=== PATIENT | male | born 1945 | race Caucasian/White ===

== ENCOUNTER → 2019-02-11 09:31 | Outpatient (CLI) | payer MEDICARE, OTHER, SELFPAY ==
[2019-02-11 10:38] LABS: Add Manual Diff / Slide Review NO; Basophils Absolute Auto 100 /uL (0-100); Eosinophils Absolute Auto 300 /uL (0-450); Eosinophils Percent Auto 3.6 % (2-4); Hematocrit 39.9 % (41-53); Hemoglobin 12.8 g/dL (13.5-17.5); Lymphocytes Absolute Auto 1200 /uL (1100-4500); Lymphocytes Percent Auto 13.9 % (25-40); Mean Corpuscular HGB Conc 32.1 % (30-36); Mean Corpuscular Hemoglobin 25.5 PG (26-34); Mean Corpuscular Volume 79.2 fL (80-100); Monocytes Absolute Auto 1300 /uL (0-900); Monocytes Percent Auto 14.5 % (3-14); Neutrophils Absolute Auto 6000 /uL (1500-7000); Platelet Count 301 X10^3/uL (150-400); Red Blood Cell Count 5.04 X10^6/uL (4.5-5.9); Red Cell Distribution Width 18.6 % (11.6-14.8); White Blood Cell Count 8.9 X10^3/uL (4.5-11.0)
[2019-02-11 10:47] LABS: Alanine Aminotransferase 67 IU/L (<50); Albumin 3.6 g/dL (3.5-5.0); Albumin Globulin Ratio 1.1 (1.0-2.8); Alkaline Phosphatase 471 U/L (38-126); Aspartate Aminotransferase 78 IU/L (17-59); BUN Creatinine Ratio 12.5 (6-22); Bilirubin Total 1.2 mg/dL (0.2-1.3); Blood Urea Nitrogen 15 mg/dL (9-20); Calcium 9.2 mg/dL (8.4-10.2); Carbon Dioxide 30 mmol/L (22-32); Chloride 104 mmol/L (98-107); Globulin 3.2 g/dL (1.7-4.1); Glucose 98 mg/dL (80-110); HEMOLYSIS < 15 (0-50); Potassium 4.1 mmol/L (3.4-5.1); Sodium 140 mmol/L (137-145); Total Protein 6.8 g/dL (6.3-8.2)
== END ==
PROVIDERS: PCP Family Medicine; Visit Provider Nurse Practitioner
DX: Z01.810 Encounter for preprocedural cardiovascular examination (principal); E78.2 Mixed hyperlipidemia; I10 Essential (primary) hypertension; I48.91 Unspecified atrial fibrillation; Z79.01 Long term (current) use of anticoagulants
CPT/HCPCS: 36415; 80053; 85025

== ENCOUNTER 2019-02-28 14:58 | Emergency (ER) | payer MEDICARE, OTHER, SELFPAY ==
[2019-02-28] VITALS (11 sets, daily range): BP systolic 98–155; BP diastolic 61–84; PULSE 60–85; RESP 10–18; TEMP 36.9; O2SAT 96–100; BMI 40.3
[2019-02-28 15:46] LABS: Add Manual Diff / Slide Review NO; Basophils Absolute Auto 100 /uL (0-100); Basophils Percent Auto 0.7 % (0-2); Eosinophils Absolute Auto 200 /uL (0-450); Hematocrit 38.5 % (41-53); Hemoglobin 12.4 g/dL (13.5-17.5); Lymphocytes Absolute Auto 900 /uL (1100-4500); Lymphocytes Percent Auto 8.1 % (25-40); Mean Corpuscular HGB Conc 32.1 % (30-36); Mean Corpuscular Hemoglobin 25.3 PG (26-34); Mean Corpuscular Volume 78.7 fL (80-100); Monocytes Absolute Auto 1800 /uL (0-900); Monocytes Percent Auto 16.5 % (3-14); Neutrophils Absolute Auto 8000 /uL (1500-7000); Neutrophils Percent Auto 72.7 % (50-75); Platelet Count 299 X10^3/uL (150-400); Red Cell Distribution Width 18.4 % (11.6-14.8)
[2019-02-28] MEDS: SODIUM CHLORIDE 0.9% 1,000 ML 150 ML IV (15:51)
[2019-02-28 15:57] LABS: BUN Creatinine Ratio 16.7 (6-22); Blood Urea Nitrogen 15 mg/dL (9-20); Calcium 8.8 mg/dL (8.4-10.2); Carbon Dioxide 25 mmol/L (22-32); Chloride 104 mmol/L (98-107); Estimated Glomerular Filt Rate > 60.0 mL/min (>60); Glucose 140 mg/dL (80-110); HEMOLYSIS < 15 (0-50); Potassium 4.1 mmol/L (3.4-5.1); Sodium 136 mmol/L (137-145)
[2019-02-28 16:09] LABS: Troponin I < 0.012 ng/mL (0.01-0.034)
--- NOTE | 2019-02-28 16:59 | ED.WEAKNESS ---
HPI - Weakness <Evelyn Brito MD - Last Filed: 02/28/19 20:01> General Chief complaint: Weakness Stated complaint: weakness, nausea, pain Time Seen by Provider: 02/28/19 15:36 Source: patient Mode of arrival: Wheelchair Limitations: no limitations History of Present Illness HPI Narrative: Patient comes emergency department complaining of weakness and fatigue for the last few weeks. The patient states that he has not had any fevers or chills. He has not been vomiting but has occasional nausea. No sore throat. No shortness of breath or chest pain. The patient states that he has not had abdominal pain. He is not known to have any thyroid issues. He did go on a keto diet about 2 months ago and lost 21 lb in a 3 week period, his states. The also states the patient is usually very active, but for about the last 12 days, he has only gotten out of bed to go to the bathroom. Related Data Home Medications Medication Instructions Recorded Confirmed atorvastatin 40 mg PO BEDTIME #0 12/26/11 02/28/19 allopurinol 100 mg tablet 100 mg PO DAILY 03/28/18 02/28/19 magnesium chloride 64 mg 128 mg PO DAILY tab 03/28/18 02/27/19 (magnesium chloride) tablet,delayed release Respironics Dreamstation CPAP #1 ea 09/26/18 02/28/19 amiodarone 200 mg tablet 200 mg PO DAILY 02/20/19 02/28/19 warfarin 5 mg tablet 2.5 mg PO DAILY tab 02/22/19 02/28/19 escitalopram oxalate 10 mg PO QPM 02/28/19 02/28/19 losartan 25 mg PO DAILY 02/28/19 02/28/19 prednisone 5 mg PO DAILY 02/28/19 02/28/19 Previous Rx's Medication Instructions Recorded pramipexole 0.25 mg tablet 0.25 mg PO BEDTIME #30 tab 01/30/19 metoprolol succinate 25 mg 25 mg PO DAILY #90 tab 02/21/19 tablet,extended release 24 hr Allergies Allergy/AdvReac Type Severity Reaction Status Date / Time No Known Drug Allergies Allergy Verified 02/28/19 15:22 Review of Systems <Evelyn Brito MD - Last Filed: 02/28/19 20:01> Constitutional Constitutional: Denies chills, Reports fatigue, Denies fever(s), Denies frequent falls, Denies lethargy and Reports weakness Eyes Eyes: Denies change in vision, Denies eye discharge, Denies irritation and Denies loss of vision ENT Ears, Nose, Mouth, and Throat: Denies change in voice, Denies dizziness, Denies neck pain, Denies sore throat and Denies throat swelling Cardiovascular Cardiovascular: Denies chest pain, Denies irregular heart rhythm, Denies lightheadedness, Denies palpitations, Denies dyspnea, Denies dyspnea on exertion and Denies orthopnea Respiratory Respiratory: Denies cough, Denies dyspnea, Denies dyspnea on exertion and Denies wheezing Gastrointestinal Gastrointestinal: Denies abdominal pain, Denies change in bowel habits, Denies diarrhea, Denies nausea and Denies vomiting Genitourinary Genitourinary: Denies hematuria, Denies flank pain, Denies urinary incontinence and Denies urinary urgency Musculoskeletal Musculoskeletal: Denies back pain, Denies muscle weakness, Denies neck pain, Denies numbness and Denies tingling Integumentary/Breasts Skin/Breast: Denies pruritus, Denies erythema, Denies rash and Denies wounds Neurologic Neurologic: Denies behavioral changes, Denies confusion, Denies dizziness, Denies frequent falls, Denies loss of vision, Denies numbness, Denies tingling and Reports weakness Psychiatric Psychiatric: Denies anxiety, Denies behavioral changes, Denies confusion, Denies depression, Denies homicidal ideation and Denies suicidal ideation Endocrine Endocrine: Reports fatigue, Denies flushing and Denies palpitations Hematologic/Lymphatic Hematologic/Lymphatic: Denies easy bruising Allergic/Immunologic Allergic/Immunologic: Denies urticaria, Denies throat swelling and Denies wheezing Patient History <Evelyn Brito MD - Last Filed: 02/28/19 20:01> Medical History Aortic stenosis (Chronic) Atrial fibrillation (Chronic) CAD (coronary artery disease) (Chronic) Hyperlipidemia (Chronic) Hypertensive cardiovascular disease (Chronic) NSTEMI (non-ST elevated myocardial infarction) (Resolved 2014) Obesity (Chronic) Obstructive sleep apnea (Chronic 10/2015) Surgical History History of appendectomy (Resolved) History of cardiac radiofrequency ablation (RFA) (Resolved 06/2015) History of cardioversion (Resolved 01/14/11) History of colonoscopy with polypectomy (Resolved 01/02/14) History of left cataract surgery (Resolved 08/17/16) History of percutaneous coronary intervention (Resolved 2014) History of right cataract surgery (Resolved 07/06/16) History of tonsillectomy (Resolved) Status post placement of cardiac pacemaker (Resolved 06/24/14) Social History Smoking Status: Former smoker Smoking Status: Former smoker alcohol intake frequency: holidays/special occasions only Substance Use Type: does not use Exam <Evelyn Brito MD - Last Filed: 02/28/19 20:01> Initial Vital Signs Initial Vital Signs: Vital Signs Temperature 98.4 F 02/28/19 15:22 Pulse Rate 85 02/28/19 15:22 Respiratory Rate 13 02/28/19 15:22 Blood Pressure 111/64 02/28/19 15:22 Pulse Oximetry 98 02/28/19 15:22 Const General: cooperative and well developed Nutritional Appearance: well nourished Orientation: alert, awake, oriented x3 and not confused [facility] Head: normocephalic and atraumatic Ears: external ears normal Nose: external nose normal and No nasal discharge Face and sinus: face symmetric and No dry mucous membranes Mouth: oral mucosae normal and moist mucous membranes Teeth and gingiva: dentition normal Eyes General: appearance normal, both eyes and all related structures Eyelids: eyelids normal Conjunctivae: conjunctivae normal Sclera: sclerae normal Pupils: PERRL EOM: EOM intact bilaterally Neck Neck: normal visual inspection, trachea midline, No lymphadenopathy, No midline deformity and No JVD Lymphatic: No lymphedema Chest Chest: normal inspection of the chest Resp Effort & Inspection: normal respiratory effort, able to speak in complete sentences, no respiratory distress and no use of accessory muscles Auscultation: clear to auscultation bilaterally, no rales, no rhonchi and no wheezes Cardio Rate: regular rate Rhythm: regular rhythm Heart Sounds: no click, no gallops, no murmurs and no rubs Pulses: normal peripheral pulses GI Inspection: non-distended Palpation: soft, no hepatosplenomegaly, No guarding, No pulsatile mass and No tender Auscultation: normal bowel sounds Back/Spine/Pelvis Back: No CVA tenderness Cervical Spine: cervical ROM normal and No pain with cervical ROM Thoracic/Lumbar Spine: thoracic and lumbar spine normal to inspection Skin General: no rashes or lesions noted, No jaundice and No petechiae Neuro General: alert, oriented x3, gait normal and no focal motor deficits Speech: speech normal Extrem General: full ROM, no clubbing, cyanosis or edema, no pedal edema and no calf tenderness Psych Appearance: well kempt Mental Status: mental status grossly normal Attitude: cooperative Thought Content: normal and suicidality Judgment: judgment good <Marvin Moyer DO - Last Filed: 03/01/19 02:10> Initial Vital Signs Initial Vital Signs: Vital Signs Temperature 98.4 F 02/28/19 15:22 Pulse Rate 85 02/28/19 15:22 Respiratory Rate 13 02/28/19 15:22 Blood Pressure 111/64 02/28/19 15:22 Pulse Oximetry 98 02/28/19 15:22 Course <Evelyn Brito MD - Last Filed: 02/28/19 20:01> Course Course Narrative: Patient was given IV fluids and worked up with labs and EKG. Liver function testing, including alkaline phosphatase, was found to be significantly worsened compared to most recent previous labs. As such, an ultrasound of the abdomen was ordered. Patient is still pending urinalysis, as well. The patient is signed out to Dr. Moyre at change of shift, pending remainder of workup and disposition. Orders Ordered: ED Orders 02/28/19 17:05 XR chest 1V Stat 02/28/19 17:33 US abdomen limited Stat 02/28/19 19:13 Ictotest Urine Stat Urinalysis and Microscopic Stat 02/28/19 19:53 CT chest abd pel w con Stat Discontinued Medications Sodium Chloride (Normal Saline 0.9%) 1,000 mls @ 150 mls/hr IV CONT ROE Last Infusion: 02/28/19 22:33 Dose: 0 mls/hr Documented by: [email or web address] Admin: 02/28/19 15:51 Dose: 150 mls/hr Documented by: MIGUELITO Vital Signs Vital signs: Vital Signs - 8 hr 02/28/19 18:15 02/28/19 19:00 02/28/19 20:50 Pulse Rate 61 66 71 Respiratory Rate 15 14 14 Blood Pressure [Left Arm] 113/67 121/71 145/77 H Pulse Oximetry 98 100 98 02/28/19 21:11 02/28/19 22:17 Pulse Rate 65 65 Respiratory Rate 17 10 L Blood Pressure [Left Arm] 144/82 H 155/84 H Pulse Oximetry 96 96 <Marvin Moyer DO - Last Filed: 03/01/19 02:10> Orders Ordered: ED Orders 02/28/19 17:05 XR chest 1V Stat 02/28/19 17:33 US abdomen limited Stat 02/28/19 19:13 Ictotest Urine Stat Urinalysis and Microscopic Stat 02/28/19 19:53 CT chest abd pel w con Stat Discontinued Medications Sodium Chloride (Normal Saline 0.9%) 1,000 mls @ 150 mls/hr IV CONT ROE Last Infusion: 02/28/19 22:33 Dose: 0 mls/hr Documented by: Admin: 02/28/19 15:51 Dose: 150 mls/hr Documented by: MIGUELITO Vital Signs Vital signs: Vital Signs - 8 hr 02/28/19 18:15 02/28/19 19:00 02/28/19 20:50 Pulse Rate 61 66 71 Respiratory Rate 15 14 14 Blood Pressure [Left Arm] 113/67 121/71 145/77 H Pulse Oximetry 98 100 98 02/28/19 21:11 02/28/19 22:17 Pulse Rate 65 65 Respiratory Rate 17 10 L Blood Pressure [Left Arm] 144/82 H 155/84 H Pulse Oximetry 96 96 MDM - Weakness <Evelyn Brito MD - Last Filed: 02/28/19 20:01> Lab Data Result diagrams: 02/28/19 15:35 02/28/19 15:35 Labs: Lab Results 02/28/19 02/28/19 02/28/19 Range/Units 15:35 15:35 15:35 WBC 11.0 (4.5-11.0) X10^3/uL RBC 4.90 (4.5-5.9) X10^6/uL Hgb 12.4 L (13.5-17.5) g/dL Hct 38.5 L (41-53) % MCV 78.7 L (80-100) fL MCH 25.3 L (26-34) PG MCHC 32.1 (30-36) % RDW 18.4 H (11.6-14.8) % Plt Count 299 (150-400) X10^3/uL Neut % (Auto) 72.7 (50-75) % Lymph % (Auto) 8.1 L (25-40) % Perry % (Auto) 16.5 H (3-14) % Eos % (Auto) 2.0 (2-4) % Baso % (Auto) 0.7 (0-2) % Neut # (Auto) 8000 H (6146-6370) /uL Lymph # (Auto) 900 L (6056-4499) /uL Perry # (Auto) 1800 H (0-900) /uL Eos # (Auto) 200 (0-450) /uL Baso # (Auto) 100 (0-100) /uL Sodium 136 L (137-145) mmol/L Potassium 4.1 (3.4-5.1) mmol/L Chloride 104 (98-107) mmol/L Carbon Dioxide 25 (22-32) mmol/L BUN 15 (9-20) mg/dL Creatinine 0.90 (0.66-1.25) mg/dL Estimated GFR > 60.0 (>60) mL/min BUN/Creatinine Ratio 16.7 (6-22) Glucose 140 H (80-110) mg/dL Calcium 8.8 (8.4-10.2) mg/dL Total Bilirubin 2.5 H (0.2-1.3) mg/dL AST 175 H (17-59) IU/L ALT 86 H (<50) IU/L Alkaline Phosphatase 1245 H (38-126) U/L Total Creatine Kinase 38 L (55-170) U/L CK-MB (CK-2) TNP CK-MB (CK-2) Rel Index TNP Troponin I < 0.012 (0.01-0.034) ng/mL B-Natriuretic Peptide 218 H (<100) Total Protein 6.3 (6.3-8.2) g/dL Albumin 3.1 L (3.5-5.0) g/dL Globulin 3.2 (1.7-4.1) g/dL Albumin/Globulin Ratio 1.0 (1.0-2.8) TSH (0.47-4.68) uIU/mL Urine Color Urine Appearance Urine pH (4.5-8.0) Ur Specific [place] (1.000-1.035) Urine Protein (Negative) Urine Glucose (UA) (Negative) g/dL Urine Ketones (NEGATIVE) Urine Occult Blood (Negative) Urine Nitrate (Negative) Urine Bilirubin (NEGATIVE) Urine Ictotest (Negative) Urine Urobilinogen (0.2) E.U./dL Ur Leukocyte Esterase (NEGATIVE) Urine RBC (0-5/HPF) Urine WBC (0-5/HPF) Urine Bacteria (None) Urine Mucus (Negative) Ur Culture Indicated? 02/28/19 02/28/19 Range/Units 15:35 19:13 WBC (4.5-11.0) X10^3/uL RBC (4.5-5.9) X10^6/uL Hgb (13.5-17.5) g/dL Hct (41-53) % MCV (80-100) fL MCH (26-34) PG MCHC (30-36) % RDW (11.6-14.8) % Plt Count (150-400) X10^3/uL Neut % (Auto) (50-75) % Lymph % (Auto) (25-40) % Perry % (Auto) (3-14) % Eos % (Auto) (2-4) % Baso % (Auto) (0-2) % Neut # (Auto) (1222-0358) /uL Lymph # (Auto) (1756-1051) /uL Perry # (Auto) (0-900) /uL Eos # (Auto) (0-450) /uL Baso # (Auto) (0-100) /uL Sodium (137-145) mmol/L Potassium (3.4-5.1) mmol/L Chloride (98-107) mmol/L Carbon Dioxide (22-32) mmol/L BUN (9-20) mg/dL Creatinine (0.66-1.25) mg/dL Estimated GFR (>60) mL/min BUN/Creatinine Ratio (6-22) Glucose (80-110) mg/dL Calcium (8.4-10.2) mg/dL Total Bilirubin (0.2-1.3) mg/dL AST (17-59) IU/L ALT (<50) IU/L Alkaline Phosphatase (38-126) U/L Total Creatine Kinase (55-170) U/L CK-MB (CK-2) CK-MB (CK-2) Rel Index Troponin I (0.01-0.034) ng/mL B-Natriuretic Peptide (<100) Total Protein (6.3-8.2) g/dL Albumin (3.5-5.0) g/dL Globulin (1.7-4.1) g/dL Albumin/Globulin Ratio (1.0-2.8) TSH 0.83 (0.47-4.68) uIU/mL Urine Color Blanco Urine Appearance Clear Urine pH 6.0 (4.5-8.0) Ur Specific [place] 1.015 (1.000-1.035) Urine Protein 1+ H (Negative) Urine Glucose (UA) Negative (Negative) g/dL Urine Ketones Negative (NEGATIVE) Urine Occult Blood Negative (Negative) Urine Nitrate Negative (Negative) Urine Bilirubin 2+ H (NEGATIVE) Urine Ictotest Positive H (Negative) Urine Urobilinogen 4.0 H (0.2) E.U./dL Ur Leukocyte Esterase Negative (NEGATIVE) Urine RBC None seen (0-5/HPF) Urine WBC None seen (0-5/HPF) Urine Bacteria None seen (None) Urine Mucus 2+ H (Negative) Ur Culture Indicated? Cult not indicated <Marvin Moyer, - Last Filed: 03/01/19 02:10> Lab Data Attestation: I reviewed the patient's lab results. Labs: Lab Results 02/28/19 02/28/19 02/28/19 Range/Units 15:35 15:35 15:35 WBC 11.0 (4.5-11.0) X10^3/uL RBC 4.90 (4.5-5.9) X10^6/uL Hgb 12.4 L (13.5-17.5) g/dL Hct 38.5 L (41-53) % MCV 78.7 L (80-100) fL MCH 25.3 L (26-34) PG MCHC 32.1 (30-36) % RDW 18.4 H (11.6-14.8) % Plt Count 299 (150-400) X10^3/uL Neut % (Auto) 72.7 (50-75) % Lymph % (Auto) 8.1 L (25-40) % Perry % (Auto) 16.5 H (3-14) % Eos % (Auto) 2.0 (2-4) % Baso % (Auto) 0.7 (0-2) % Neut # (Auto) 8000 H (5559-8943) /uL Lymph # (Auto) 900 L (0632-4884) /uL Perry # (Auto) 1800 H (0-900) /uL Eos # (Auto) 200 (0-450) /uL Baso # (Auto) 100 (0-100) /uL Sodium 136 L (137-145) mmol/L Potassium 4.1 (3.4-5.1) mmol/L Chloride 104 (98-107) mmol/L Carbon Dioxide 25 (22-32) mmol/L BUN 15 (9-20) mg/dL Creatinine 0.90 (0.66-1.25) mg/dL Estimated GFR > 60.0 (>60) mL/min BUN/Creatinine Ratio 16.7 (6-22) Glucose 140 H (80-110) mg/dL Calcium 8.8 (8.4-10.2) mg/dL Total Bilirubin 2.5 H (0.2-1.3) mg/dL AST 175 H (17-59) IU/L ALT 86 H (<50) IU/L Alkaline Phosphatase 1245 H (38-126) U/L Total Creatine Kinase 38 L (55-170) U/L CK-MB (CK-2) TNP CK-MB (CK-2) Rel Index TNP Troponin I < 0.012 (0.01-0.034) ng/mL B-Natriuretic Peptide 218 H (<100) Total Protein 6.3 (6.3-8.2) g/dL Albumin 3.1 L (3.5-5.0) g/dL Globulin 3.2 (1.7-4.1) g/dL Albumin/Globulin Ratio 1.0 (1.0-2.8) TSH (0.47-4.68) uIU/mL Urine Color Urine Appearance Urine pH (4.5-8.0) Ur Specific [place] (1.000-1.035) Urine Protein (Negative) Urine Glucose (UA) (Negative) g/dL Urine Ketones (NEGATIVE) Urine Occult Blood (Negative) Urine Nitrate (Negative) Urine Bilirubin (NEGATIVE) Urine Ictotest (Negative) Urine Urobilinogen (0.2) E.U./dL Ur Leukocyte Esterase (NEGATIVE) Urine RBC (0-5/HPF) Urine WBC (0-5/HPF) Urine Bacteria (None) Urine Mucus (Negative) Ur Culture Indicated? 02/28/19 02/28/19 Range/Units 15:35 19:13 WBC (4.5-11.0) X10^3/uL RBC (4.5-5.9) X10^6/uL Hgb (13.5-17.5) g/dL Hct (41-53) % MCV (80-100) fL MCH (26-34) PG MCHC (30-36) % RDW (11.6-14.8) % Plt Count (150-400) X10^3/uL Neut % (Auto) (50-75) % Lymph % (Auto) (25-40) % Perry % (Auto) (3-14) % Eos % (Auto) (2-4) % Baso % (Auto) (0-2) % Neut # (Auto) (8792-7082) /uL Lymph # (Auto) (8322-8975) /uL Perry # (Auto) (0-900) /uL Eos # (Auto) (0-450) /uL Baso # (Auto) (0-100) /uL Sodium (137-145) mmol/L Potassium (3.4-5.1) mmol/L Chloride (98-107) mmol/L Carbon Dioxide (22-32) mmol/L BUN (9-20) mg/dL Creatinine (0.66-1.25) mg/dL Estimated GFR (>60) mL/min BUN/Creatinine Ratio (6-22) Glucose (80-110) mg/dL Calcium (8.4-10.2) mg/dL Total Bilirubin (0.2-1.3) mg/dL AST (17-59) IU/L ALT (<50) IU/L Alkaline Phosphatase (38-126) U/L Total Creatine Kinase (55-170) U/L CK-MB (CK-2) CK-MB (CK-2) Rel Index Troponin I (0.01-0.034) ng/mL B-Natriuretic Peptide (<100) Total Protein (6.3-8.2) g/dL Albumin (3.5-5.0) g/dL Globulin (1.7-4.1) g/dL Albumin/Globulin Ratio (1.0-2.8) TSH 0.83 (0.47-4.68) uIU/mL Urine Color Blanco Urine Appearance Clear Urine pH 6.0 (4.5-8.0) Ur Specific [place] 1.015 (1.000-1.035) Urine Protein 1+ H (Negative) Urine Glucose (UA) Negative (Negative) g/dL Urine Ketones Negative (NEGATIVE) Urine Occult Blood Negative (Negative) Urine Nitrate Negative (Negative) Urine Bilirubin 2+ H (NEGATIVE) Urine Ictotest Positive H (Negative) Urine Urobilinogen 4.0 H (0.2) E.U./dL Ur Leukocyte Esterase Negative (NEGATIVE) Urine RBC None seen (0-5/HPF) Urine WBC None seen (0-5/HPF) Urine Bacteria None seen (None) Urine Mucus 2+ H (Negative) Ur Culture Indicated? Cult not indicated Imaging Data US - abdomen: Radiologist's impression: [place] [address] Ultrasound Report Signed Patient: Reginald Carmona [facility]#: [id number] : 4Acct:[id number] Age/Sex: 73 / MDate of Service: 02/28/19 Loc: ED Accession Number: [id number] Procedure: US abdomen limited Ordering Provider: Evelyn Brito MD PROCEDURE: US ABDOMEN LIMITED INDICATIONS: PROGRESSIVELY INCREASING LIVER FUNCTION TESTS TECHNIQUE: Real-time scanning was performed of the abdominal and retroperitoneal organs, with image documentation. COMPARISON: None. FINDINGS: Liver: Nodular contour of the liver is seen. Heterogeneous liver parenchymal echotexture is seen with numerous hypoechoic areas scattered throughout liver parenchyma concerning for hepatic lesions. Gallbladder: There is no gallstone. Mild gallbladder wall thickening is seen measures up to 5 mm in thickness. No pericholecystic fluid or sonographic Dan sign. Biliary ducts: Intrahepatic bile ducts are non-dilated. Extrahepatic bile duct caliber measures 6 mm. Normal is 6-7 mm or less in diameter, or 10 mm or less post-cholecystectomy. Pancreas: Pancreas is not well-visualized due to overlying bowel gas. IMPRESSION: Nodular liver contour with markedly heterogeneous echotexture and suggestion of numerous hypoechoic hepatic lesions concerning for metastatic disease. No intrahepatic biliary ductal dilatation. No common bile duct dilatation. Questionable gallbladder wall thickening. No sonographic evidence of acute cholecystitis. Dictated by: Stefan Santiago M.D. on 02/28/2019 at 20:03 Approved by: Stefan Santiago M.D. on 02/28/2019 at 20:06 Chest x-ray: Radiologist's impression: [place] [address] XRay Report Signed Patient: Reginald Carmona CMR#: [id number] : [id number]:[id number] Age/Sex: 73 / MDate of Service: 02/28/19 Loc: ED Accession Number: [id number] Procedure: XR chest 1V Ordering Provider: Evelyn Brito MD PROCEDURE: XR CHEST 1V INDICATIONS: fatigue TECHNIQUE: One view of the chest was acquired. COMPARISON: [facility], , CHEST 1 VIEW, 08/27/2014, 12:48. FINDINGS: Surgical changes and devices: Left chest wall pacemaker leads are seen in the region of right atrium and right ventricle. Lungs and pleura: Lungs are clear. No pleural effusions or pneumothorax. Mediastinum: Mildly tortuous thoracic aorta is seen.. Heart size is enlarged. Bones and chest wall: No suspicious bony lesions. Overlying soft tissues appear unremarkable. IMPRESSION: No acute cardiopulmonar pathology. Dictated by: Stefan Santiago M.D. on 02/28/2019 at 17:44 Approved by: Stefan Santiago M.D. on 02/28/2019 at 17:44 CT chest abdomen pelvis: Radiologist's impression: [address] [address] [address] Scan Report Signed Patient: Reginald Carmona CMR#: [id number] : [id number]:[id number] Age/Sex: 73 / MDate of Service: 02/28/19 Loc: ED Accession Number: [id number] Procedure: CT chest abd pel w con Ordering Provider: Marvin Moyer D.O. PROCEDURE: CT CHEST ABD PEL W CON INDICATIONS: Potential liver Mets unknown primary TECHNIQUE: After the administration of oral and intravenous contrast, 5 mm thick sections acquired from the lung apices to the symphysis. 5 mm coronal and sagittal reformats were performed, with additional 7 mm coronal MIP reformats through the lungs. For radiation dose reduction, the following was used: automated exposure control, adjustment of mA and/or kV according to patient size. COMPARISON: None. FINDINGS: Image quality: Excellent. CHEST: Lungs and pleura: No acute airspace opacities. There is biapical scarring. Dependent atelectasis in posterior aspect of bilateral lung alvarez are seen. No pleural effusions or pneumothorax. Central and peripheral airways appear patent and normal in caliber. Mediastinum: Heart size is enlarged. No pericardial effusion. Pacemaker leads are seen in in the region of right atrium and right ventricle. Moderate amount of atherosclerotic calcifications are seen. No mediastinal or hilar adenopathy by size criteria. Thoracic aorta and central pulmonary arteries are normal in size. Esophagus is normal in caliber. No hiatal hernia. Chest wall: Left chest wall pacemaker is seen. No axillary or supraclavicular adenopathy by size criteria. Thyroid gland is enlarged with bilateral hypodense thyroid nodules which may represent multilobular goiter. ABDOMEN: Solid organs: Lobulated liver contour with innumerable hypodense lesions scattered throughout liver parenchyma is seen consistent with extensive hepatic metastatic lesions measures up to 5.1 x 5.5 cm in size in left hepatic lobe an up to 3.3 x 2.6 cm in size in inferior right hepatic lobe. Gallbladder is contracted with mild gallbladder wall thickening. No gallstone is seen.. Biliary system is non dilated. Pancreas enhances normally. Spleen is normal in size and enhancement. No adrenal nodules. Kidneys demonstrate normal size and enhancement, without hydronephrosis. Bilateral nonobstructing renal calculi are seen. Exophytic cyst in midpole of left kidney measures 2 cm in size is also noted. Additional smaller bilateral renal cortical cysts are seen. Peritoneum and bowel: There is no evidence of bowel obstruction. No gross abnormal bowel wall thickening or mesenteric fat stranding is seen. There is circumferential wall thickening involving 4 cm segment of proximal sigmoid colon with narrowing of the lumen concerning for an apple core lesion in this area. Sigmoid diverticulosis is seen, and no CT evidence of acute diverticulitis. No free fluid or free air. Nodes and vessels: No retroperitoneal or mesenteric adenopathy by size criteria. Numerous subcentimeter retroperitoneal lymph nodes are seen measures up to 9 mm in short axis diameter. Aorta and inferior vena cava are normal in size. Miscellaneous: No ventral hernias. PELVIS: Genitourinary: Mild diffuse bladder wall thickening is noted, no discrete bladder wall mass. Miscellaneous: No inguinal hernias or adenopathy. Bones: No definite suspicious bony lesions. No vertebral body compression fractures. IMPRESSION: 1. Extensive liver metastatic disease as above. 2. There is circumferential wall thickening involving 4 cm segment of proximal sigmoid colon concerning for an apple core lesion in this area. GI correlation is recommended. Sigmoid diverticulosis with no CT evidence of acute diverticulitis. No bowel obstruction. No free fluid or free air. 3. Bilateral nonobstructing renal calculi and renal cysts. No hydronephrosis. 4. No discrete pulmonary nodule or mass is seen. No mediastinal or hilar lymphadenopathy. Subcentimeter retroperitoneal nodes as above. 5. Enlarged thyroid gland with multiple hypodense areas concerning for multinodular goiter. Dictated by: Stefan Santiago M.D. on 02/28/2019 at 20:36 Approved by: Stefan Santiago M.D. on 02/28/2019 at 21:11 ECG Data Attestation: I personally reviewed and interpreted this ECG as follows: Prior ECG tracings: not available for review Interpretation: Atrially paced Ventricular rate is 60 QRS duration 1-[address] T wave changes MDM Narrative Medical decision making narrative: Dr moyer: Received turned over from Dr. Brito. Reviewed patient's history and physical. For my own independent exam. Patient's EKG shows no acute changes. Chest x-ray is unremarkable. Patient does have elevated LFTs and bilirubin. Right upper quadrant ultrasound was ordered prior to my arrival. Review of this shows nodules in the liver concerning for metastatic disease. I do not think that his gallbladder is the primary source of his elevated LFTs or the symptoms of brought him in to the ER. Concern for the metastatic disease prompted the CT scan the chest abdomen pelvis. Does show thickening of the sigmoid colon. There's a concern that this potentially is the source of the nodules in his liver meaning metastatic colon cancer. Patient states that his last colonoscopy was somewhat between 5 and 10 years ago. He states he does not remember anything abnormal about it. He has not any rectal bleeding. He has had a significant weight loss recently however this was intentional for him. I did discuss the case with Dr. Dorado who was on-call for General surgery who stated that the patient's next workup should be a colonoscopy. Did not feel that this was a the situation we needed to admit him to the hospital for this. I also discussed the case with Dr. Mclean who is on-call for the patient's primary provider. This was just to let the office know that the patient will be calling tomorrow for an expedient workup of the findings on his CT scan. I did discuss the CT findings with the patient. I did inform him that there is concern for metastatic disease. I did inform him that he does need further workup to include a colonoscopy. He was given the phone number for the [facility] but he was also informed that he should contact his primary office clinic for referrals and further workup as well. Patient expressed understanding. Expressed gratitude for the workup here in the emergency department. He was given return precautions. He expressed understanding and agreement plan. Discharge Plan Departure Patient Disposition: Home Clinical Impression: Colon abnormality, Elevated liver function tests, Liver nodule Discharge Date/Time: 02/28/19 22:44 Activity Restrictions/Additional Instructions: The CT scan and ultrasound findings today are somewhat concerning about colon cancer. This does need further workup. I discussed your case kristopher with Dr. Dorado with the [place] [facility]. Their number is [phone]. They recommend that you get a referral to have a colonoscopy. I also discussed the case kristopher with Dr. Mclean he was on-call for your primary doctor. Call their office tomorrow at [phone] for a follow-up. I do recommend that you hold on taking your metoprolol and lisinopril. Continue to take your blood pressure at home like we discussed. You can continue your other medications. Return to the emergency department for any new or worsening symptoms Prescriptions: No Action atorvastatin 40 MG tablet 40 mg PO BEDTIME Qty: 0 RF: 0 pramipexole 0.25 mg tablet 0.25 mg PO BEDTIME Qty: 30 RF: 3 metoprolol succinate 25 mg tablet extended release 24 hr 25 mg PO DAILY Qty: 90 RF: 0 amiodarone 200 mg tablet 200 mg PO DAILY RF: 0 warfarin [Coumadin] 5 mg tablet 2.5 mg PO DAILY RF: 0 prednisone 5 mg tablet 5 mg PO DAILY RF: 0 losartan 25 mg tablet 25 mg PO DAILY RF: 0 escitalopram oxalate 10 mg tablet 10 mg PO QPM RF: 0 allopurinol 100 mg tablet 100 mg PO DAILY RF: 0 magnesium chloride 64 mg tablet,delayed release (DR/EC) 128 mg PO DAILY RF: 0 (DME) [employer] CPAP Qty: 1 RF: 0 Referrals: Kadeem Ga MD [Primary Care Provider] -
--- NOTE | 2019-02-28 17:05 | DI.RAD.S_ITS ---
PROCEDURE: XR CHEST 1V INDICATIONS: fatigue TECHNIQUE: One view of the chest was acquired. COMPARISON: [facility], , CHEST 1 VIEW, 08/27/2014, 12:48. FINDINGS: Surgical changes and devices: Left chest wall pacemaker leads are seen in the region of right atrium and right ventricle. Lungs and pleura: Lungs are clear. No pleural effusions or pneumothorax. Mediastinum: Mildly tortuous thoracic aorta is seen.. Heart size is enlarged. Bones and chest wall: No suspicious bony lesions. Overlying soft tissues appear unremarkable. IMPRESSION: No acute cardiopulmonar pathology. Dictated by: Stefan Santiago M.D. on 02/28/2019 at 17:44 Approved by: Stefan Santiago M.D. on 02/28/2019 at 17:44
[2019-02-28 17:13] LABS: Alanine Aminotransferase 86 IU/L (<50); Albumin 3.1 g/dL (3.5-5.0); Alkaline Phosphatase 1245 U/L (38-126); Aspartate Aminotransferase 175 IU/L (17-59); Bilirubin Total 2.5 mg/dL (0.2-1.3); Creatine Kinase 38 U/L (55-170); Globulin 3.2 g/dL (1.7-4.1); Total Protein 6.3 g/dL (6.3-8.2)
--- NOTE | 2019-02-28 17:33 | DI.US.S_ITS ---
PROCEDURE: US ABDOMEN LIMITED INDICATIONS: PROGRESSIVELY INCREASING LIVER FUNCTION TESTS TECHNIQUE: Real-time scanning was performed of the abdominal and retroperitoneal organs, with image documentation. COMPARISON: None. FINDINGS: Liver: Nodular contour of the liver is seen. Heterogeneous liver parenchymal echotexture is seen with numerous hypoechoic areas scattered throughout liver parenchyma concerning for hepatic lesions. Gallbladder: There is no gallstone. Mild gallbladder wall thickening is seen measures up to 5 mm in thickness. No pericholecystic fluid or sonographic Dan sign. Biliary ducts: Intrahepatic bile ducts are non-dilated. Extrahepatic bile duct caliber measures 6 mm. Normal is 6-7 mm or less in diameter, or 10 mm or less post-cholecystectomy. Pancreas: Pancreas is not well-visualized due to overlying bowel gas. IMPRESSION: Nodular liver contour with markedly heterogeneous echotexture and suggestion of numerous hypoechoic hepatic lesions concerning for metastatic disease. No intrahepatic biliary ductal dilatation. No common bile duct dilatation. Questionable gallbladder wall thickening. No sonographic evidence of acute cholecystitis. Dictated by: Stefan Santiago M.D. on 02/28/2019 at 20:03 Approved by: Stefan Santiago M.D. on 02/28/2019 at 20:06
[2019-02-28 17:45] LABS: B Type Natriuretic Peptide 218 (<100)
[2019-02-28 18:06] LABS: Thyroid Stimulating Hormone 0.83 uIU/mL (0.47-4.68)
--- NOTE | 2019-02-28 19:53 | DI.CT.S_ITS ---
PROCEDURE: CT CHEST ABD PEL W CON INDICATIONS: Potential liver Mets unknown primary TECHNIQUE: After the administration of oral and intravenous contrast, 5 mm thick sections acquired from the lung apices to the symphysis. 5 mm coronal and sagittal reformats were performed, with additional 7 mm coronal MIP reformats through the lungs. For radiation dose reduction, the following was used: automated exposure control, adjustment of mA and/or kV according to patient size. COMPARISON: None. FINDINGS: Image quality: Excellent. CHEST: Lungs and pleura: No acute airspace opacities. There is biapical scarring. Dependent atelectasis in posterior aspect of bilateral lung alvarez are seen. No pleural effusions or pneumothorax. Central and peripheral airways appear patent and normal in caliber. Mediastinum: Heart size is enlarged. No pericardial effusion. Pacemaker leads are seen in in the region of right atrium and right ventricle. Moderate amount of atherosclerotic calcifications are seen. No mediastinal or hilar adenopathy by size criteria. Thoracic aorta and central pulmonary arteries are normal in size. Esophagus is normal in caliber. No hiatal hernia. Chest wall: Left chest wall pacemaker is seen. No axillary or supraclavicular adenopathy by size criteria. Thyroid gland is enlarged with bilateral hypodense thyroid nodules which may represent multilobular goiter. ABDOMEN: Solid organs: Lobulated liver contour with innumerable hypodense lesions scattered throughout liver parenchyma is seen consistent with extensive hepatic metastatic lesions measures up to 5.1 x 5.5 cm in size in left hepatic lobe an up to 3.3 x 2.6 cm in size in inferior right hepatic lobe. Gallbladder is contracted with mild gallbladder wall thickening. No gallstone is seen.. Biliary system is non dilated. Pancreas enhances normally. Spleen is normal in size and enhancement. No adrenal nodules. Kidneys demonstrate normal size and enhancement, without hydronephrosis. Bilateral nonobstructing renal calculi are seen. Exophytic cyst in midpole of left kidney measures 2 cm in size is also noted. Additional smaller bilateral renal cortical cysts are seen. Peritoneum and bowel: There is no evidence of bowel obstruction. No gross abnormal bowel wall thickening or mesenteric fat stranding is seen. There is circumferential wall thickening involving 4 cm segment of proximal sigmoid colon with narrowing of the lumen concerning for an apple core lesion in this area. Sigmoid diverticulosis is seen, and no CT evidence of acute diverticulitis. No free fluid or free air. Nodes and vessels: No retroperitoneal or mesenteric adenopathy by size criteria. Numerous subcentimeter retroperitoneal lymph nodes are seen measures up to 9 mm in short axis diameter. Aorta and inferior vena cava are normal in size. Miscellaneous: No ventral hernias. PELVIS: Genitourinary: Mild diffuse bladder wall thickening is noted, no discrete bladder wall mass. Miscellaneous: No inguinal hernias or adenopathy. Bones: No definite suspicious bony lesions. No vertebral body compression fractures. IMPRESSION: 1. Extensive liver metastatic disease as above. 2. There is circumferential wall thickening involving 4 cm segment of proximal sigmoid colon concerning for an apple core lesion in this area. GI correlation is recommended. Sigmoid diverticulosis with no CT evidence of acute diverticulitis. No bowel obstruction. No free fluid or free air. 3. Bilateral nonobstructing renal calculi and renal cysts. No hydronephrosis. 4. No discrete pulmonary nodule or mass is seen. No mediastinal or hilar lymphadenopathy. Subcentimeter retroperitoneal nodes as above. 5. Enlarged thyroid gland with multiple hypodense areas concerning for multinodular goiter. Dictated by: Stefan Santiago M.D. on 02/28/2019 at 20:36 Approved by: Stefan Santiago M.D. on 02/28/2019 at 21:11
[2019-02-28 20:53] LABS: Bacteria Urine None Seen; RBC Urine None Seen (0-5/HPF); WBC Urine None Seen (0-5/HPF)
[2019-02-28 20:54] LABS: Appearance Urine UA CLEAR; Bilirubin Urine UA 2+ (NEGATIVE); Color Urine UA ORANGE; Glucose Urine UA NEGATIVE (Negative); Ketones Urine UA NEGATIVE (NEGATIVE); Leukocyte Esterase Urine UA NEGATIVE (NEGATIVE); Nitrite Urine UA NEGATIVE (Negative); Occult Blood Urine UA NEGATIVE (Negative); Protein Urine UA 1+ (Negative); Specific Gravity Urine UA 1.015 (1.000-1.035)
[2019-02-28 21:02] LABS: Culture Indicated Urine Cult Not Indicated; Mucus Urine 2+ (Negative)
[2019-02-28 21:04] LABS: Ictotest Urine Positive (Negative)
== END 2019-02-28 22:44 | disposition home or self-care (01) ==
PROVIDERS: Emergency Medicine; Emergency Provider Emergency Medicine; Family Provider Nurse Practitioner Family; PCP Family Medicine
DX: K63.9 Disease of intestine, unspecified (principal); R94.5 Abnormal results of liver function studies; K76.89 Other specified diseases of liver
CPT/HCPCS: 71045; 71260; 74177; 76705; 80053; 81001; 82550; 83880; 84443; 84484; 85025; 93005; 93010; 96360; 96361; 99284; 99285